=== PATIENT | male | born 1995 | race African-American/Black ===

== ENCOUNTER 2017-08-12 10:02 | Emergency (ER) | payer OTHER | END 2017-08-12 10:50 | disposition home or self-care (01) | LOC: ERS 10:02 | DX: R05 Cough (principal); J45.909 Unspecified asthma, uncomplicated; F17.210 Nicotine dependence, cigarettes, uncomplicated | CPT/HCPCS: 99406 ==

== ENCOUNTER 2017-08-16 23:03 | Emergency (ER) | payer OTHER | END 2017-08-17 00:07 | disposition left against medical advice (07) | LOC: ERS 23:03 | DX: Z53.21 Procedure and treatment not carried out due to patient leaving prior to being seen by health care provider (principal) ==

== ENCOUNTER 2018-03-12 18:22 | Emergency (ER) | payer OTHER ==
[2018-03-12] MEDS ORDERED: Ibuprofen 800 MG TAB ONE (18:43)
[2018-03-12] MEDS ORDERED: Dexamethasone 4 mg/ml Vial ONE (18:54)
[2018-03-12] MEDS ORDERED: Acetaminophen 500 MG TAB ONE (19:50)
== END 2018-03-12 20:01 | disposition home or self-care (01) ==
LOC: ERS 18:22
DX: B34.9 Viral infection, unspecified (principal); J45.909 Unspecified asthma, uncomplicated; F17.210 Nicotine dependence, cigarettes, uncomplicated
CPT/HCPCS: 87081; 87430; 99283; J1100

== ENCOUNTER 2018-10-03 12:14 | Emergency (ER) | payer OTHER ==
[2018-10-03] MEDS ORDERED: Dexamethasone 4 MG TAB ONE (14:40)
[2018-10-03] MEDS ORDERED: Bicillin LA 1.2 MILLION UNITS/2 ML SYRINGE ONE (14:40)
== END 2018-10-03 15:15 | disposition home or self-care (01) ==
LOC: ERS 12:14
DX: J02.0 Streptococcal pharyngitis (principal); J45.909 Unspecified asthma, uncomplicated; F17.210 Nicotine dependence, cigarettes, uncomplicated; Z71.6 Tobacco abuse counseling
CPT/HCPCS: 87430; 96372; 99406; J0561; J8540